=== PATIENT | male | born 1995 | race Caucasian/White ===

== ENCOUNTER 2018-07-25 18:39 | Emergency (ER) | payer OTHER ==
[2018-07-25] MEDS ORDERED: NS 1,000 ML IV ONE (20:36)
--- NOTE | 2018-07-25 20:50 | EDPHY ---
H & P Smoking Status: Never smoked Time Seen by Provider: 07/25/18 19:36 HPI/ROS: CHIEF COMPLAINT: Headache and scalp lesion HISTORY OF PRESENT ILLNESS: Patient is a 22-year-old male with no significant past medical history he was complaints of worsening headache and sensation of lesion to the top of his scalp growing in size for the last year. Patient states that a year ago he noticed a lump on the top of his head that was causing him pain. He saw a utility inspector at that time who was unclear on what the cause the lump was. Throughout the year he has had intermittent pain but feels that through the last week he has had worsening pain associated with sensation of water rushing in his nose and slight numbness to the roof of his mouth and also believes that the lump has grown significantly in the last week. He denies any fever, chills, vision changes, dizziness, issues coordination. Denies any drug or alcohol use. He does not smoke. Does report chronic neck stiffness but denies any changes in his chronic neck stiffness. REVIEW OF SYSTEMS: Constitutional: No fever, no chills. Eyes: No discharge. ENT: No sore throat. Cardiovascular: No chest pain, no palpitations. Respiratory: No cough, no shortness of breath. Gastrointestinal: No abdominal pain, no vomiting. Genitourinary: No hematuria. Musculoskeletal: No back pain. Skin: No rashes. Neurological: + headache. (Paco Flores) Physical Exam: General Appearance: Alert and no distress. ENT: normal dentition. No tonsillar exudate or swelling. No nuchal rigidity Head: Atraumatic. Bony ridge fell to the superior aspect of the scalp. No erythema or induration or area of fluctuance Eyes: Pupils equal and round no injection. Respiratory: Chest is nontender, lungs are clear to auscultation. Cardiac: regular rate and rhythm. No lower extremity edema Gastrointestinal: Abdomen is soft and nontender, no masses, bowel sounds normal. Musculoskeletal: Neck is supple and nontender. Extremities have full range of motion and are nontender without deformity Skin: No rashes or lesions. Neuro: Cranial nerves grossly intact. No nystagmus. Normal [id number] testing. No ulnar drift. Equal grasp bilateral hands. Ambulatory. (Paco Flores) Constitutional: Initial Vital Signs Temperature (C) 36.8 C 07/25/18 18:53 Heart Rate 120 H 18 18:53 Respiratory Rate 16 07/25/18 18:53 Blood Pressure 148/97 H 07/25/18 18:53 O2 Sat (%) 98 07/25/18 18:53 O2 Delivery Mode Room Air Allergies/Adverse Reactions: No Known Allergies Allergy (Unverified 07/25/18 18:53) Home Medications: Medication Instructions Recorded Advil 07/25/18 Medical Decision Making - Diagnostics Imaging Results: Imaging Impressions Head CT 07/25/18 19:56 Impression: Mildly prominent osseous ridge along the vertex of the skull, without osseous destruction, of uncertain clinical significance. No evidence for a soft tissue mass in the scalp. Otherwise, normal CT of the head, without contrast. Results called and discussed with Paco Flores PA-C, on July 25, 2018 at 2031. ED Course/Re-evaluation: Patient was also seen by me. I reviewed the history of lump on scalp for 1 year. Apparent increase in size over the past 2 weeks. He has twinges of headache discomfort. He felt tonight some cracking and popping at the site. He has had no fever and no upper respiratory symptoms. Exam shows initial heart rate of 120. Afebrile. There is a prominent ridge of bone at the top of his head. Tympanic membranes are normal. Pupils equal round reactive. Neck is supple without meningismus. Neurologically intact (Onesimo Santos) 22-year-old male here with 1 year of worsening pain from bony growth to his scalp. He has no focal neurologic deficits is afebrile. Labs show mild elevation of his blood sugar at 140 and a WBC 10. Discussed these findings with the patient and his mother in the degree to close follow-up with her primary care doctor to recheck blood sugar. Regards to the lump on his head CT scan reveals a small ridge of bone that does not appear to be tumor. As the labs and CT scan do not completely explain the patient's symptoms will have him follow up closely here, with his primary care doctor and with Neurosurgery for a 2nd opinion as to the significance of the bony growth. (Paco Flores) Differential Diagnosis: Bony tumor, brain mass, CVA, meningitis (Paco Flores) - Data Points Laboratory Results: Laboratory Results 07/25/18 21:00 07/25/18 21:00 07/25/18 07/25/18 21:00 21:00 WBC 10.91 10^3/uL H 10^3/uL (3.80-9.50) RBC 4.95 10^6/uL 10^6/uL (4.40-6.38) Hgb 15.3 g/dL g/dL (13.7-17.5) Hct 44.5 % % (40.0-51.0) MCV 89.9 fL fL (81.5-99.8) MCH 30.9 pg pg (27.9-34.1) MCHC 34.4 g/dL g/dL (32.4-36.7) RDW 11.4 % L % (11.5-15.2) Plt Count 272 10^3/uL 10^3/uL (150-400) MPV 10.9 fL fL (8.7-11.7) Neut % (Auto) 80.4 % H % (39.3-74.2) Lymph % (Auto) 13.5 % L % (15.0-45.0) [place] % (Auto) 5.1 % % (4.5-13.0) Eos % (Auto) 0.3 % L % (0.6-7.6) Baso % (Auto) 0.4 % % (0.3-1.7) Nucleat RBC Rel Count 0.0 % % (0.0-0.2) Absolute Neuts (auto) 8.78 10^3/uL H 10^3/uL (1.70-6.50) Absolute Lymphs (auto) 1.47 10^3/uL 10^3/uL (1.00-3.00) Absolute Monos (auto) 0.56 10^3/uL 10^3/uL (0.30-0.80) Absolute Eos (auto) 0.03 10^3/uL 10^3/uL (0.03-0.40) Absolute Basos (auto) 0.04 10^3/uL 10^3/uL (0.02-0.10) Absolute Nucleated RBC 0.00 10^3/uL 10^3/uL (0-0.01) Immature Gran % 0.3 % % (0.0-1.1) Immature Gran # 0.03 10^3/uL 10^3/uL (0.00-0.10) Sodium 140 mEq/L mEq/L (135-145) Potassium 4.0 mEq/L mEq/L (3.5-5.2) Chloride 104 mEq/L mEq/L (97-110) Carbon Dioxide 23 mEq/l mEq/l (22-31) Anion Gap 13 mEq/L mEq/L (6-14) BUN 19 mg/dL mg/dL (7-23) Creatinine 1.1 mg/dL mg/dL (0.7-1.3) Estimated GFR > 60 Glucose 140 mg/dL H mg/dL (70-100) Calcium 9.7 mg/dL mg/dL (8.5-10.4) Total Bilirubin 1.0 mg/dL mg/dL (0.1-1.4) AST 25 IU/L IU/L (17-59) ALT 28 IU/L IU/L (21-72) Alkaline Phosphatase 59 IU/L IU/L (38-126) Total Protein 7.3 g/dL g/dL (6.3-8.2) Albumin 4.9 g/dL g/dL (3.5-5.0) Medications Given: Discontinued Medications Sodium Chloride (Ns) 1,000 mls @ 0 mls/hr IV EDNOW ONE; Wide Open PRN Reason: Protocol Stop: 07/25/18 20:37 Last Admin: 07/25/18 21:03 Dose: 1,000 mls Departure - Departure Disposition: Home, Routine, Self-Care Clinical Impression: Elevated blood sugar, Headache Condition: Good Instructions: Acute Headache (DC) Additional Instructions: This or severe symptoms and the significance of the bump on her head is unclear. I would like her to follow up with Neurosurgery to have a 2nd opinion. Please call them tomorrow to schedule appointment for next week. Additionally I would like you to be re-evaluated in the next 24-48 hours either here or with her primary care physician. Also your blood sugar is slightly elevated at 140 today. He need follow-up to recheck her blood sugar in the next 2-3 days with her primary care physician. Referrals: NONE *PRIMARY CARE P,. [Primary Care Provider] - As per Instructions Kevin Trejo MD [Medical Doctor] - As per Instructions
[2018-07-25 21:05] VITALS: BP 138/78
[2018-07-25 21:11] LABS: PLATELET COUNT 272 10^3/uL (150-400)
== END 2018-07-25 21:54 | disposition home or self-care (01) ==
DX: R51 Headache (principal); R73.09 Other abnormal glucose; E86.9 Volume depletion, unspecified